=== PATIENT | female | born 1995 | race Two or more races ===

== ENCOUNTER 2017-07-14 00:03 | Emergency (ER) | payer OTHER ==
[~2017-07-14] VITALS: Ht 154.9 cm; Wt 52.2 kg
[2017-07-14 00:03] VITALS: BP 107/65
--- NOTE | 2017-07-14 00:42 | NUR ---
PT A/OX4 BREATHING EFFORTLESSLY ON ROOM AIR, PT STATES SHE HAS BEEN HAVING BURNING WITH URINATION X 1 DAY AND STATES IT IS SO BAD SHE CAN NOT SLEEP, URINE COLLECTED AND SENT TO LAB, MADE AWARE WILL CONTINUE TO MONITOR.
[2017-07-14 00:54] LABS: APPEARANCE,URINE CLOUDY (CLEAR); BILIRUBIN,URINE NEGATIVE (NEGATIVE); BLOOD, URINE 3+ Ery/uL (NEGATIVE); COLOR,URINE YELLOW (YELLOW); KETONES,URINE NEGATIVE (NEGATIVE); LEUKOCYTE ESTERASE ,URINE 2+ (NEGATIVE); NITRITE, URINE NEGATIVE (NEGATIVE); PROTEIN,URINE 2+ mg/dl (NEGATIVE); UGLUCOSE NEGATIVE (NEGATIVE); UROBILINOGEN,URINE 0.2 EU/dL (0.2)
[2017-07-14 00:59] LABS: BACTERIA,URINE Moderate /HPF (None Seen); SQUAMOUS EPITHELIAL CELL,UR Few /HPF (None Seen); WBC,URINE 81-100 /HPF (0-3)
[2017-07-14] MEDS ORDERED: NITROFURANTOIN/NITROFURAN MAC 100 MG CAPSULE ONE (01:26)
[2017-07-14] MEDS ORDERED: IBUPROFEN 400 MG TABLET ONE (01:26)
[2017-07-14] MEDS ORDERED: IBUPROFEN 400 MG TABLET PO ONE (01:30)
[2017-07-14] MEDS ORDERED: NITROFURANTOIN/NITROFURAN MAC 100 MG CAPSULE PO ONE (01:30)
== END 2017-07-14 01:40 | disposition home or self-care (01) ==
LOC: ER 00:03
DX: N30.90 Cystitis, unspecified without hematuria (principal); J45.909 Unspecified asthma, uncomplicated
CPT/HCPCS: 81001; 84703; 87077; 87086; 87186; 99284; A4606; Z7610; 81000-TC

== ENCOUNTER 2017-09-23 20:14 | Emergency (ER) | payer OTHER ==
--- NOTE | 2017-09-23 22:31 | NUR ---
CALLED NO ONE IN LOBBY
== END 2017-09-23 23:03 | disposition left against medical advice (07) ==
LOC: ER 20:23
DX: Z53.21 Procedure and treatment not carried out due to patient leaving prior to being seen by health care provider (principal)

== ENCOUNTER 2017-09-24 16:16 | Emergency (ER) | payer OTHER ==
[~2017-09-24] VITALS: Ht 154.9 cm; Wt 54.4 kg
[2017-09-24 16:32] VITALS: BP 121/64
--- NOTE | 2017-09-24 16:49 | NUR ---
[facility] GENERALIST AT BEDSIDE FOR EVAL.
[2017-09-24 17:12] LABS: APPEARANCE,URINE CLEAR (CLEAR); BILIRUBIN,URINE NEGATIVE (NEGATIVE); BLOOD, URINE NEGATIVE Ery/uL (NEGATIVE); COLOR,URINE YELLOW (YELLOW); KETONES,URINE TRACE (NEGATIVE); LEUKOCYTE ESTERASE ,URINE 1+ (NEGATIVE); NITRITE, URINE NEGATIVE (NEGATIVE); PROTEIN,URINE NEGATIVE (NEGATIVE); UGLUCOSE NEGATIVE (NEGATIVE); UROBILINOGEN,URINE 0.2 EU/dL (0.2)
[2017-09-24 17:25] LABS: BACTERIA,URINE Few /HPF (None Seen); RBC,URINE 0-2 /HPF (0-2); SQUAMOUS EPITHELIAL CELL,UR Few /HPF (None Seen)
== END 2017-09-24 17:47 | disposition home or self-care (01) ==
LOC: ER 16:18
DX: N76.0 Acute vaginitis (principal); J45.909 Unspecified asthma, uncomplicated; F10.10 Alcohol abuse, uncomplicated; F17.200 Nicotine dependence, unspecified, uncomplicated
CPT/HCPCS: 81001; 84703; 87086; 87491; 87591; 99284; 99406; A4606; Z7610; 81000-TC

== ENCOUNTER 2017-10-12 18:16 | Emergency (ER) | payer OTHER ==
[~2017-10-12] VITALS: Ht 154.9 cm; Wt 54.4 kg
[2017-10-12 18:23] VITALS: BP 115/79
[2017-10-12 18:59] LABS: APPEARANCE,URINE Clear (CLEAR); BILIRUBIN,URINE Negative (NEGATIVE); BLOOD, URINE Negative Ery/uL (NEGATIVE); COLOR,URINE Yellow (YELLOW); KETONES,URINE Negative (NEGATIVE); LEUKOCYTE ESTERASE ,URINE Negative (NEGATIVE); NITRITE, URINE Negative (NEGATIVE); PROTEIN,URINE Negative (NEGATIVE); UGLUCOSE Negative (NEGATIVE); UROBILINOGEN,URINE 0.2 EU/dL (0.2)
--- NOTE | 2017-10-12 19:12 | NUR ---
GAVE REPORT TO [facility]
== END 2017-10-12 19:22 | disposition home or self-care (01) ==
LOC: ER 18:17
DX: H61.23 Impacted cerumen, bilateral (principal); R10.2 Pelvic and perineal pain; J45.909 Unspecified asthma, uncomplicated
CPT/HCPCS: 81000-TC; 84703-TC; A4606; Z7610